=== PATIENT | male | born 1940 | race Caucasian/White ===

== ENCOUNTER → 2019-03-23 | Outpatient (CLI) | payer MEDICARE, OTHER ==
--- NOTE | 2019-03-24 08:43 | Diagnostic Imaging Report ---
EXAMINATION: CT of the lumbar spine HISTORY: No back pain radiating to the right lower extremity with numbness, history of prostate cancer, diabetes, hypertension, kidney failure and slight prominence. COMPARISON: None available TECHNIQUE: Multidetector helical axial images were obtained without contrast from L1 to S1. The images were reconstructed using bone and soft tissue algorithms and were viewed in axial, sagittal, and coronal planes. Dose modulation, iterative reconstruction, and/or weight based adjustment of the mA/kV was utilized to reduce the radiation dose to as low as reasonably achievable. FINDINGS: Alignment: Thoracolumbar shaped scoliosis with dominant and levoscoliosis centered at L3 and compensatory proximal thoracolumbar and distal lumbosacral right-sided curvature. Grade 1 degenerative anterolisthesis of L4 on L5 (about 6 mm), minimal retrolisthesis at L1-L2, L2-L3 and L3-L4. Subtle thoracolumbar kyphosis. Vertebral bodies: Normal height and density. Minimal chronic anterior wedging of the T12 and L1 vertebral bodies. Prominent chronic endplate degenerative changes at L1-L2 mainly on the last, L3-L4 mainly on the right and on the last at L5-S1 due to above-mentioned scoliosis. Paraspinal muscles: Moderate paraspinal musculature atrophy with fatty infiltration.. Degenerative changes: Overall decreased disc,, disc bulges and vacuum phenomena at all levels except L4-L5. Marginal endplate osteophytes at all levels. L1-L2: Spondylosis and facet arthrosis. Mild foraminal stenoses bilaterally.. L2-L3: Spondylosis and facet arthrosis. Moderately severe right and moderate left foraminal stenoses. Minimal canal narrowing L3-L4: Spondylosis and facet arthrosis. Severe right and moderate left foraminal stenoses. Mild to moderate canal stenoses L4-L5: Spondylosis and prominent facet arthrosis as well as ligamentum flavum thickening. Possible prior right right laminotomy defect. Moderately severe right and moderate left foraminal stenosis. Qiln-[id number] canal stenosis. L5-S1: Spondylosis with asymmetric left disc osteophyte and bilateral facet arthrosis. Mild narrowing of the left lateral recess and moderate left foraminal stenoses. Sacroiliac joints: Degenerative changes mainly on the left with bridging osteophyte. IMPRESSION: 1. Prominent thoracolumbar scoliosis as detailed above. 2. Grade 1 degenerative anterolisthesis of L4 on L5. 3. Moderate to severe foraminal stenoses from L2-L3 to L5-S1 due to degenerative changes and scoliosis. 4. [id number] degenerative spinal canal stenoses from L2-L3 to L4-L5 Signed by: Dr. Holly Brown M.D. on 03/24/2019 8:40 AM
== END ==
LOC: CT 16:45
PROVIDERS: ATTEND Family Medicine
DX: M54.41 Lumbago with sciatica, right side (principal)
CPT/HCPCS: 72131

== ENCOUNTER → 2019-04-23 | Outpatient (CLI) | payer MEDICARE, OTHER ==
[~2019-04-23] MED LIST: IOPAMIDOL 200 MG/ML 20 ML VIAL IT ONE; IOPAMIDOL 300 MG/ML 15ML VIAL IT ONE; LIDOCAINE HCL 1% LOCAL INJ 20 ML VIAL ONE
[2019-04-23 13:52] LABS: INR 0.96; PROTHROMBIN TIME 13.3 seconds (11.9-14.5)
--- NOTE | 2019-04-23 15:39 | Diagnostic Imaging Report ---
PROCEDURE: Lumbar myelogram Procedural Personnel Attending physician(s): Ana Paula Posada MD Fellow physician(s): None Resident physician(s): None Advanced practice provider(s): None Pre-procedure diagnosis: Spinal stenosis Post-procedure diagnosis: Same Indication: Lumbar spinal stenosis, back pain Additional clinical history: None Complications: No immediate complications. IMPRESSION: Fluoroscopically guided lumbar myelogram with 8cc Isovue 370 injected. PLAN: Patient to be transported to CT for lumbar CT myelogram. PROCEDURE SUMMARY: - Fluoroscopically guided lumbar myelogram at L3-4. - 8cc Isovue 370 injected intrathecally. PROCEDURE DETAILS: Pre-procedure Consent: Informed consent for the procedure including risks, benefits and alternatives was obtained and time-out was performed prior to the procedure. Preparation: The site was prepared and draped using maximal sterile barrier technique including cutaneous antisepsis. 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 Under image guidance and via a translaminar approach, a 22 gauge 3.5 inch needle was advanced to the thecal space. CSF return was observed and contrast injection performed with 8cc Isovue 370 injected. Target level: L3-4 Radiation Dose Fluoroscopy time (minutes): 2.9 Reference air kerma (mGy): 39.2 Additional Details Additional description of procedure: None Equipment details: None Specimens removed: None Estimated blood loss (mL): Minimal Attestation Signer name: Ana Paula Posada MD I attest that I was present for the entire procedure. I reviewed the stored images and agree with the report as written. Signed by: Ana Paula Posada MD on 04/23/2019 3:36 PM
--- NOTE | 2019-04-24 10:50 | Diagnostic Imaging Report ---
History: Spinal stenosis with neurogenic claudication, spondylolisthesis Comparison studies:Preceding myelogram. Noncontrast lumbar spine CT 03/23/2019. Technique: Axial images were obtained through the lumbar region. Axial, coronal and sagittal images utilizing both bone and soft tissue algorithms were obtained. Dose modulation, iterative reconstruction, and/or weight based adjustment of the mA/kV was utilized to reduce the radiation dose to as low as reasonably achievable. Intrathecal contrast: See myelogram report. Findings: Number of non-rib bearing lumbar vertebral bodies: 5. Alignment: Thoracolumbar S-shaped scoliosis with dominant lumbar curvature convex left, apex at L3 and compensatory dextro thoracic curvature. Minimal degenerate Grade 1 degenerative retrolisthesis of L1 on L2,, L2 on L3 and L3-L4. Approximately 9 mm Grade 1 degenerative anterolisthesis of L4 and L5. Soft tissues: No abnormalities . Paraspinal muscles: Fatty replaced atrophic changes with moderate asymmetric atrophy on the along the convexity of lumbar curvature. Lower thoracic spinal cord: Well-visualized. The tip of the conus is at the superior L1 level. Vertebrae: No fractures, infection or neoplasm. Degenerative changes: Anterior marginal osteophytes present at all levels. T11-T12: Mildly degenerated disc with small left central disc protrusion. Patent canal and foramina. T12-L1: Mildly degenerated disc. Patent canal and foramina.. L1-L2: Moderately degenerated disc with vacuum disc and moderate loss of disc height and cystic/sclerotic endplate changes which are most pronounced in the left. Minimal retrolisthesis of L1 on L2 with asymmetric left disc osteophyte complex and mild facet arthrosis with moderate left foraminal stenosis. Patent canal and right foramen. L2-L3: Moderately degenerated disc with vacuum phenomenon and mild loss of disc height. Schmorl's nodes present along left endplates. Minimal retrolisthesis of L2 on L3 with disc osteophyte complex, thickened ligamentum flavum and mild facet arthrosis with mild canal stenosis severe right and mild left foraminal stenosis. L3-L4: Moderately degenerated disc with cystic and cirrhotic endplate changes on the right along the concavity lumbar curvature. Disc bulge with right foraminal disc osteophyte complex, ligamentum flavum and facet arthrosis with mild canal stenosis and severe right and mild left foraminal stenosis. L4-L5: Degenerated disc with mild loss of disc height. Grade 1 anterolisthesis of L4 and L5 with associated uncovered disc/disc bulge, thickened ligamentum flavum and severe bilateral facet arthrosis with moderate right foraminal stenosis, mild left foraminal stenosis and mild canal stenosis. L5-S1: Moderately degenerated disc with vacuum phenomenon and loss of disc height asymmetric left disc osteophyte complex and moderate left and mild right facet arthrosis with moderate left foraminal stenosis. Patent canal and right foramen. Sacroiliac joints: Degenerative changes bilaterally with anterior osteophyte with joint ankylosis on the left and partial ankylosis inferiorly with bridging osteophyte on the right. Incidental findings: Scattered calcified atherosclerosis in the aorta and iliac arteries. IMPRESSION: 1. Thoracolumbar scoliosis with lumbar levocurvature apex at L3. 2. Grade 1 anterolisthesis of L4 on L5 with severe L4-L5 facet arthrosis. 3. Moderate multilevel disc degeneration. 4. Mild degenerative canal stenosis from L2 to L5. 5. Varying degrees of moderate to severe degenerative foraminal stenosis from L1 to S1. Signed by: Dr. Gustavo Sutherland M.D. on 04/24/2019 10:47 AM
== END ==
LOC: DX 04-21 11:23
PROVIDERS: ATTEND Neurological Surgery
DX: M48.062 Spinal stenosis, lumbar region with neurogenic claudication (principal); M43.16 Spondylolisthesis, lumbar region
CPT/HCPCS: 36415; 62304; 72132; 85049; 85610; 85730; Q9967; J2001

== ENCOUNTER 2019-06-08 15:12 | Outpatient (RCR) | payer MEDICARE, OTHER | END 2019-06-12 | LOC: PT 15:12 | PROVIDERS: ATTEND Psychiatry & Neurology Clinical Neurophysiology | DX: R26.89 Other abnormalities of gait and mobility (principal) ==

== ENCOUNTER 2020-01-03 11:03 | Emergency (ER) | payer MEDICARE, OTHER ==
[~2020-01-03] VITALS: Ht 170.2 cm; Wt 72.6 kg
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
== END 2020-01-03 14:13 | disposition home or self-care (01) ==
LOC: ER 11:03
DX: M47.896 Other spondylosis, lumbar region (principal); V89.2XXA Person injured in unspecified motor-vehicle accident, traffic, initial encounter; I10 Essential (primary) hypertension; E11.9 Type 2 diabetes mellitus without complications; E78.5 Hyperlipidemia, unspecified; I25.10 Atherosclerotic heart disease of native coronary artery without angina pectoris; Z95.1 Presence of aortocoronary bypass graft
CPT/HCPCS: 72110; 99282